=== PATIENT | female | born 1955 | race Caucasian/White ===

== ENCOUNTER 2020-06-14 03:28 | Emergency (ER) | payer OTHER ==
[~2020-06-14] VITALS: Ht 162.6 cm; Wt 72.6 kg
--- NOTE | 2020-06-14 03:35 | NUR ---
PT BIBRA C/O SORE THROAT, BODY ACHES, AND COUGH. PT STATES THAT SHE HAS HAD A COLD FOR A WEEK AND YESTERDAY SHE STARTED HAVING A SORE THROAT. PT DENIES FEVER OR RUNNY NOSE. PT STATES THAT HER BODY IS WEAK. BREATHING IS EVEN AND UNLABORED. PT IS A&OX4. PT PRESENTS WITH A PACEMAKER. PT IS HOOKED TO SAP MANAGER AND POX. CALL LIGHT WITHIN REACH. WILL CONTINUE TO [employer]IOTOR.
--- NOTE | 2020-06-14 03:40 | NUR ---
IV LINE STARTED. UNABLE TO COLLECT BLOOD. CALLED LAB TO DRAW BLOOD
--- NOTE | 2020-06-14 03:49 | NUR ---
CALLED FOR COVID SWAB
[2020-06-14] MEDS ORDERED: LORAZEPAM 1 MG TABLET PO ONE (04:00)
[2020-06-14] MEDS ORDERED: LORAZEPAM 1 MG TABLET ONE (04:10)
--- NOTE | 2020-06-14 04:30 | NUR ---
COVID SWAB SENT TO LAB
--- NOTE | 2020-06-14 04:38 | NUR ---
ASHTYN JIMENEZ [phone]
[2020-06-14 05:30] LABS: BASOPHILS % (AUTO) 0.2 % (0.0-2.0); EOSINOPHILS % (AUTO) 1.3 % (0.0-6.0); HEMATOCRIT 40 % (33-45); HEMOGLOBIN 13.2 g/dL (11.5-14.8); LYMPHOCYTES # (AUTO) 1.3 /CMM (0.8-4.8); LYMPHOCYTES % (AUTO) 25.9 % (20.0-44.0); MEAN CORPUSCULAR HGB CONC 33 g/dl (31.0-36.0); MEAN CORPUSCULAR VOLUME 85 fL (82-100); MONOCYTES # (AUTO) 0.4 /CMM (0.1-1.30); NEUTROPHILS # (AUTO) 3.3 /CMM (1.8-8.9); NEUTROPHILS % (AUTO) 64.6 % (43.0-81.0); PLATELET COUNT (AUTO) 342 /CMM (150-450); RED BLOOD CELL COUNT(AUTO) 4.65 MIL/uL (4.0-5.2); WHITE BLOOD COUNT (AUTO) 5.1 K/uL (4.3-11.0)
[2020-06-14 05:42] LABS: CARBON DIOXIDE 24 mmol/L (21-32); CHLORIDE 103 mmol/L (98-107); CREATININE 0.8 mg/dL (0.6-1.3); GLUCOSE 130 mg/dL (74-106); POTASSIUM 3.7 mmol/L (3.5-5.1); SODIUM SERUM 137 mmol/L (136-145); UREA NITROGEN, BLOOD 12 mg/dL (7-18)
--- NOTE | 2020-06-14 06:05 | NUR ---
Patient discharged to home in stable condition. Written and verbal after care instructions given. Patient verbalizes understanding of instruction. IV removed. Catheter intact and site benign. Pressure and 4x4 applied to site. No bleeding noted. Pt escorted to car via wheelchair. Son arrived to take pt home.
--- NOTE | 2020-06-14 06:17 | NUR ---
LAB CALLED REGARDING NEGATIVE COVID RESULT.
[2020-06-14 06:41] VITALS: BP 125/70
== END 2020-06-14 06:12 | disposition home or self-care (01) ==
LOC: ER 03:30
DX: B34.9 Viral infection, unspecified (principal); J02.9 Acute pharyngitis, unspecified; M79.10 Myalgia, unspecified site; Z20.828 Contact with and (suspected) exposure to other viral communicable diseases; G20 Parkinson's disease; Z95.0 Presence of cardiac pacemaker; I48.91 Unspecified atrial fibrillation
CPT/HCPCS: 36415; 71045; 80048; 84484; 85025; 87426; 93005; 99285; C9803